=== PATIENT | female | born 1990 | race Caucasian/White ===

== ENCOUNTER → 2019-05-04 | Day surgery (SDC) | payer OTHER ==
[~2019-05-04] VITALS: Ht 167.6 cm; Wt 59.0 kg
[2019-05-04] VITALS (8 sets, daily range): BP systolic 100–120; BP diastolic 53–76
[~2019-05-04] MED LIST: VYVANSE60 MG PO
== END | disposition home or self-care (01) ==
LOC: SDC 04-30 13:15
DX: L72.0 Epidermal cyst (principal); L08.89 Other specified local infections of the skin and subcutaneous tissue